=== PATIENT | female | born 1975 | race American Indian/Alaskan Native ===

== ENCOUNTER 2018-03-22 10:57 | Emergency (ER) | payer BC, MEDICAID ==
[2018-03-22 11:04] VITALS: RESP 16; O2SAT 98
--- NOTE | 2018-03-22 11:37 | ED PDOC ---
Arrival/HPI - General Chief Complaint: Lower Extremity Problem/Injury Time Seen by Provider: 03/22/18 11:06 Historian: Patient - History of Present Illness Narrative History of Present Illness (Text): 03/22/18 11:38 Patient is a 42 year old female, with no significant past medical history, presents to the Emergency Department complaining of left ankle discomfort since 2 days. Patient informs tripping over a curb during her family trip to charity: water over the weekend but was able to ambulate and walk without any difficulty right after. Patient denied hitting her head, loss of consciousness or any apparent trauma at the event. However, on Tuesday patient woke up with pain and swelling to her left ankle which radiated to her left calf associated with mild difficulty walking. Patient additionally informs right elbow discomfort which she sustained after falling and hitting the wall 1 and a half weeks ago. As per patient, the pain has been constant without any improvement over time and requests medical attention. Patient denies any trauma or other injuries in the past. Patient denies any fever, chills, nausea, vomiting, diarrhea, abdominal pain, chest pain, shortness of breath or any other complaints. PMD: Dr. Barahona Time/Duration: < week (2 days) Symptom Onset: Gradual Symptom Course: Unchanged Activities at Onset: Light Context: Walking Past Medical History - Provider Review Nursing Documentation Reviewed: Yes - Psychiatric Hx Psychophysiologic Disorder: No Hx Substance Use: No - Surgical History Hx Section: Yes Hx Tubal Ligation: Yes Other/Comment: HAND SURGERY Family/Social History - Physician Review Nursing Documentation Reviewed: Yes Family/Social History: No Known Family HX Smoking Status: Never Smoked Hx Alcohol Use: Yes Frequency of alcohol use: Socially Hx Substance Use: No Allergies/Home Meds Allergies/Adverse Reactions: Allergies No Known Allergies Allergy (Verified 03/22/18 10:58) Review of Systems - Review of Systems Constitutional: absent: Fevers Respiratory: absent: SOB Cardiovascular: absent: Chest Pain Gastrointestinal: absent: Abdominal Pain Musculoskeletal: Other (left ankle discomfort; right elbow discomfort) Skin: Normal. absent: Laceration Neurological: absent: Focal Weakness Physical Exam - Physical Exam Narrative Physical Exam (Text): 03/22/18 11:37 Head: Atraumatic. Normocephalic. Eyes: PERRL. EOMI. Neck: Full ROM Cardiovascular: Regular rate. Regular rhythm. Pulmonary/Chest: No evidence of respiratory distress. Back: Nontender Extremities: Mild pain to lateral aspect of right elbow, no limitation with range of motion of shoulder, elbow or wrist. No right upper extremity pain. No clavicular pain. No pain to left hip or knee. Mild pain to left lateral ankle and foot with NO erythema or deformity. No ligamentous laxity. Negative drawer' s sign. No significant edema. NO CALF PAIN. No Achilles pain. Skin: Skin is warm and dry. No laceration or cellulitis or streaking noted. Neurological: Motor and sensory exam intact to upper and lower extremities. Psychiatric: Good eye contact. Normal interaction, affect, and behavior. Vital Signs Reviewed: Yes Vital Signs Temp Pulse Resp BP Pulse Ox 03/22/18 13:50 98.9 F 89 16 120/87 98 03/22/18 10:59 98.8 F 92 H 16 115/81 98 Temperature: Afebrile Blood Pressure: Normal Appearance: Positive for: Well-Appearing, Non-Toxic, Comfortable Pain Distress: None Mental Status: Positive for: Alert and Oriented X 3 Medical Decision Making ED Course and Treatment: 03/22/18 11:37 Impression: 42 year old female presents to the Emergency Department complaining of left ankle and right shoulder discomfort. Differential Diagnosis included but are not limited to: sprain vs. fracture Plan: -- X-ray of Left ankle -- X-ray of Right elbow -- US of lower extremity -- Reassess and disposition Progress Notes: Injury several days ago, although no initial pain. Ultrasound negative for DVT. No cellulitis noted. No significant ligamentous laxity noted. Strong distal pulses. 03/22/18 13:24 X-ray of left ankle reviewed by radiologist, shows: FINDINGS: BONES: Normal. No fracture. JOINTS: Normal. No osteoarthritis. Ankle mortise maintained. Talar dome intact SOFT TISSUES: Normal. OTHER FINDINGS: None. IMPRESSION: Normal left ankle radiographs. 03/22/18 13:26 X-ray of right elbow reviewed by radiologist, shows: FINDINGS: BONES: Normal. No fracture. JOINTS: Normal. No osteoarthritis. SOFT TISSUES: Normal. JOINT EFFUSION: None. OTHER FINDINGS: None. IMPRESSION: Unremarkable radiographs of the right elbow. Suspect sprain/contusion. NV intact and ambulatory. Will discharge with instructions to rest, followup with ortho prn. - RAD Interpretation Radiology Orders: 03/22/18 11:37 ANKLE LEFT 3 VIEWS ROUTINE [RAD] Stat ELBOW RIGHT 3 VIEWS ROUTINE [RAD] Stat 03/22/18 11:38 DUPLEX LOWER EXTRM VEIN LEFT [US] Stat - Scribe Statement The provider has reviewed the documentation as recorded by the Scribjulissa Perez. All medical record entries made by the Scribe were at my direction and personally dictated by me. I have reviewed the chart and agree that the record accurately reflects my personal performance of the history, physical exam, medical decision making, and the department course for this patient. I have also personally directed, reviewed, and agree with the discharge instructions and disposition. Disposition/Present on Arrival - Present on Arrival Any Indicators Present on Arrival: No History of DVT/PE: No History of Uncontrolled Diabetes: No Urinary Catheter: No History of Decub. Ulcer: No History Surgical Site Infection Following: None - Disposition Have Diagnosis and Disposition been Completed?: Yes Diagnosis: Elbow contusion, Ankle sprain Disposition: HOME/ ROUTINE Disposition Time: 13:45 Patient Plan: Discharge Condition: GOOD Discharge Instructions (ExitCare): Ankle Sprain (DC), Contusion (DC) Additional Instructions: For any persistent pain, any increased or worsening of swelling, any redness, any numbness/weakness, any persistent or worsening of any symptoms, get rechecked. Rest. No strenuous activity. Follow-up with orthopedic physician for any persistent pain. Use antiinflammatories as directed for pain. Prescriptions: Naproxen 250 mg PO BID PRN #10 tablet PRN Reason: Pain, Mild (1-3) Referrals: [facility] [Outside] - Follow up with primary [facility] [Outside] - Follow up with primary Forms: [employer] ([place])
--- NOTE | 2018-03-22 12:59 | RAD ---
PROCEDURE: Left Ankle Radiographs. HISTORY: ankle pain after twisting COMPARISON: None FINDINGS: BONES: Normal. No fracture. JOINTS: Normal. No osteoarthritis. Ankle mortise maintained. Talar dome intact SOFT TISSUES: Normal. OTHER FINDINGS: None. IMPRESSION: Normal left ankle radiographs.
--- NOTE | 2018-03-22 13:07 | RAD ---
PROCEDURE: Radiographs of the right elbow. HISTORY: persistent right elbow pain 2 weeks post hit COMPARISON: No prior. FINDINGS: BONES: Normal. No fracture. JOINTS: Normal. No osteoarthritis. SOFT TISSUES: Normal. JOINT EFFUSION: None. OTHER FINDINGS: None. IMPRESSION: Unremarkable radiographs of the right elbow.
--- NOTE | 2018-03-22 14:04 | US ---
PROCEDURE: Left lower extremity venous US HISTORY: Leg pain and swelling. Evaluate for DVT. PHYSICIAN(S): Shailesh Lobo MD. TECHNIQUE: Duplex sonography and color-flow Doppler with graded compression were used to evaluate the deep venous system of the left lower extremity. FINDINGS: The visualized deep venous system of the left lower extremity is sonographically normal and compressible. Normal wave forms and augmentation are seen. There is no sonographic evidence for deep venous thrombosis in the visualized segments of the left lower extremity. IMPRESSION: 1. No sonographic evidence for deep venous thrombosis in the visualized segments of the left lower extremity.
[2018-03-22 14:14] VITALS: BP 120/87; PULSE 89; TEMP 98.9
== END 2018-03-22 13:50 | disposition home or self-care (01) ==
LOC: ED 10:57
DX: S93.402A Sprain of unspecified ligament of left ankle, initial encounter (principal); S50.01XA Contusion of right elbow, initial encounter; W18.40XA Slipping, tripping and stumbling without falling, unspecified, initial encounter; Y92.831 Amusement park as the place of occurrence of the external cause